=== PATIENT | male | born 1950 | race African-American/Black ===

== ENCOUNTER 2024-11-24 10:39 | Outpatient (CLI) | payer OTHER ==
[2024-11-24 12:04] LABS: Estimated GFR - POC 92.0
== END 2024-11-24 10:40 | disposition home or self-care (01) ==
LOC: SCSMRI 10:39
PROVIDERS: ATTEND Orthopaedic Surgery Sports Medicine
DX: R22.31 Localized swelling, mass and lump, right upper limb (principal); M67.411 Ganglion, right shoulder
CPT/HCPCS: 36415; 82565